=== PATIENT | male | born 1990 | race African-American/Black ===

== ENCOUNTER 2024-01-13 12:51 | Emergency (ER) | payer OTHER, SELFPAY ==
[2024-01-13 13:05] VITALS: BP 121/82; PULSE 60; RESP 14; TEMP 36.6; O2SAT 99; BMI 23.7
--- NOTE | 2024-01-13 13:29 | PC.NURSE ---
Pt in [facility], spoke with commanding officer stated he was on anti depressant and has been for a while, when this nurse asked pt if he was on anti-depressant pt stated no and he hadn't been for a while.
[2024-01-13 13:38] LABS: MANUAL DIFF FLAG NO
[2024-01-13 13:40] LABS: Basophils Absolute Auto 0.1 X10*3/uL (0.0-0.2); Basophils Percent Auto 1.4 % (0-2); Eosinophils Absolute Auto 0.6 X10*3/uL (0.0-0.4); Eosinophils Percent Auto 12.2 % (0-4); Hematocrit 41.5 % (42.0-52.0); Hemoglobin 14.4 g/dl (14.0-18.0); Imm Gran Abs Auto 0.01 X10*3/uL (0.00-0.03); Imm Gran Pct Auto 0.2 % (0.0-0.4); Lymphocytes Absolute Auto 1.9 X10*3/uL (1.2-4.9); Lymphocytes Percent Auto 38.2 % (20-40); Mean Corpuscular HGB Conc 34.7 g/dl (31.0-36.0); Mean Corpuscular Hemoglobin 30.4 pg (27.0-33.0); Mean Corpuscular Volume 87.7 fL (80.0-98.0); Mean Platelet Volume 10.2 fL (9.4-12.4); Monocytes Absolute Auto 0.6 X10*3/uL (0.1-1.2); Monocytes Percent Auto 11.2 % (2-11); Neutrophils Absolute Auto 1.9 x10*3/uL (2.0-8.3); Neutrophils Percent Auto 36.8 % (45-73); Platelet Count 166 X10*3/uL (160-400); Red Blood Count 4.73 X10*6/uL (4.60-5.80); Red Cell Distribution Width 12.8 % (11.0-16.0); White Blood Count 5.1 X10*3/uL (4.8-10.8)
[2024-01-13 13:41] LABS: Appearance Urine Clear; Color Urine Yellow; Glucose Urine UA Negative (Negative); Leukocyte Esterase Urine Negative (Negative); Nitrite Urine Negative (Negative); PH 6.5 (5.0-9.0); Specific Gravity - Urine 1.025 (1.005-1.025); Urine Blood Negative (Negative); Urine Ketones Negative (Negative); Urine Protein Trace mg/dL (Neg-Trace)
[2024-01-13 14:08] LABS: Amphetamine Screen Urine Not Detected (Not Detect); Barbiturates, Urine Not Detected (Not Detect); Benzodiazepines Screen Urine Not Detected (Not Detect); Buprenorphine Scr Not Detected (Not Detect); Cannabinoid Screen Urine Not Detected (Not Detect); Cocaine Screen Urine Not Detected (Not Detect); Fentanyl, urine Not Detected (Not Detect); Methadone Screen, Urine Not Detected (Not Detect); Opiate Screen Urine Not Detected (Not Detect); Oxycodone Screen Urine Not Detected (Not Detect); Phencyclidine Screen Urine Not Detected (Not Detect)
[2024-01-13 14:08] LABS: Alanine Aminotransferase 13 U/L (0-40); Albumin Level 4.5 g/dL (3.5-5.0); Alkaline Phosphatase 52 U/L (39-117); Anion Gap 14 (12-20); Aspartate Amino Transferase 19 U/L (5-37); Bilirubin Direct 0.5 mg/dL (0.0-0.5); Bilirubin Total 1.2 mg/dL (0.0-1.0); Blood Urea Nitrogen 10 mg/dL (9-16); Calcium 9.5 mg/dL (8.4-10.2); Carbon Dioxide 27 mmol/L (22-29); Chloride 107 mmol/L (96-108); Creatinine Clr Calc Pharmacy 95.4; Estimated Glomerular Filt Rate > 60; Ethanol < 10 mg/dL; Glucose Random 90 mg/dL (60-115); Magnesium 1.9 mg/dL (1.6-2.6); Potassium 4.2 mmol/L (3.3-5.1); Sodium 144 mmol/L (135-145); Total Protein 7.6 g/dL (6.5-8.0)
--- NOTE | 2024-01-13 15:15 | ED_ITS ---
HPI - General Adult General Chief complaint: Psychiatric Symptoms Stated complaint: crisis Time Seen by Provider: 01/13/24 15:15 History of Present Illness HPI narrative: The patient is a 33-year-old male who was in the [employer]. He works as a marine volunteer recruiter. He has a history of depression. He says that he went off antidepressant medications about 3 or 4 months ago because he felt they were really doing much for him. He comes to the emergency room because he has been feeling more depressed over the last couple of weeks. He says that there has been a lot of stress on the job. A volunteer recruiter has a lot of pressure to meet quota requirements and this can be stressful. In particular he feels that he has been receiving pressure from colleagues regarding quotas. Additionally he has family in [place]. The developments in [place] recently and the implication for his family members in that country has also been a source of stress. Apparently he spoke to a superior officer today about whether he might have any likelihood of doing any self-harm and he suggested that he might have some thoughts of that kind. His superior officer therefore brought him to the hospital. The patient has had no fever sweats or chills. He reports that he had bone graft oral surgery on his left jaw 3 or 4 weeks ago at a [facility] in [place] [employer] [place]. He has some minor ongoing discomfort in the jaw but no definite sense of any complications from the procedure. Related Data Allergies Allergy/AdvReac Type Severity Reaction Status Date / Time Penicillins Allergy Unknown Verified 01/13/24 13:09 Review of Systems 2 Review of Systems: Yes all other systems are reviewed and are negative PMFSH Social History Social History Advance Directives: No Advance Directives Information Provided: No Physical Exam ED Vital Signs: Vital Signs - 24 hr 01/13/24 13:05 01/13/24 15:28 01/13/24 16:16 Temperature 97.9 F 98.2 F 98.0 F Pulse Rate 60 64 58 Respiratory Rate 14 16 16 Blood Pressure 121/82 120/90 H 129/83 Pulse Oximetry 99 98 98 Oxygen Delivery Method Room Air Room Air Room Air 01/13/24 17:26 Temperature 98.0 F Pulse Rate 58 Respiratory Rate 16 Blood Pressure 129/83 Pulse Oximetry 98 Oxygen Delivery Method Room Air BMI result Body Mass Index 23.7 Const Other: The patient is a healthy looking 33-year-old who was awake and alert. He has a very subdued demeanor but does not seem in distress. He makes good eye contact. He is very pleasant. HENRI Other: Face is symmetrical. No oral swelling. Intraoral exam is normal. No trismus. Eyes Other: Pupils are round equal, conjunctivae clear Neck Other: No adenopathy Resp Effort & Inspection: normal respiratory effort Auscultation: clear to auscultation bilaterally Cardio Rate: regular rate Rhythm: regular rhythm Heart sounds: S1 normal heart sound present and S2 normal heart sound present GI Other: Abdomen is soft and nontender Skin Other: Skin is dry and unremarkable Neuro Other: The patient is awake, alert, pleasant, cooperative. Cranial nerves are intact. He moves his extremities normally. Gait is normal, neurologically intact. Extrem Other: No swelling or asymmetry of the extremities Medical Decision Making Medical Decision Making MDM Narrative: The patient is a 33-year-old [employer] volunteer recruiter who was brought to the hospital by his superiors out of concern for possible depression. The patient denies any definite suicidal thoughts. He is medically clear. He was seen by the care team who felt that he was appropriate for outpatient management. Safety planning was done. The patient lives in [place] and usually works in [place] but was at the [employer] [facility] today conference. He will be discharged with his personnel. He will follow up as an outpatient. He denies any suicidal thoughts at the time of discharge. Lab Data 01/13/24 13:35 01/13/24 13:35 Labs: Lab Results 01/13/24 01/13/24 Range/Units 13:27 13:35 WBC 5.1 (4.8-10.8) X10*3/uL RBC 4.73 (4.60-5.80) X10*6/uL Hgb 14.4 (14.0-18.0) g/dl Hct 41.5 L (42.0-52.0) % MCV 87.7 (80.0-98.0) fL MCH 30.4 (27.0-33.0) pg MCHC 34.7 (31.0-36.0) g/dl RDW 12.8 (11.0-16.0) % Plt Count 166 (160-400) X10*3/uL MPV 10.2 (9.4-12.4) fL Immature Gran % (Auto) 0.2 (0.0-0.4) % Neut % (Auto) 36.8 L (45-73) % Lymph % (Auto) 38.2 (20-40) % Atkinson % (Auto) 11.2 H (2-11) % Eos % (Auto) 12.2 H (0-4) % Baso % (Auto) 1.4 (0-2) % Lymph # (Auto) 1.9 (1.2-4.9) X10*3/uL Atkinson # (Auto) 0.6 (0.1-1.2) X10*3/uL Eos # (Auto) 0.6 H (0.0-0.4) X10*3/uL Baso # (Auto) 0.1 (0.0-0.2) X10*3/uL Abs Immat Gran (auto) 0.01 (0.00-0.03) X10*3/uL Absolute Neuts (auto) 1.9 L (2.0-8.3) x10*3/uL Absolute Nucleated RBC 0.000 (0.0-0.012) X10*3/uL Nucleated RBC % (auto) 0.0 (0.0-0.2) /100WBC Sodium 144 (135-145) mmol/L Potassium 4.2 (3.3-5.1) mmol/L Chloride 107 (96-108) mmol/L Carbon Dioxide 27 (22-29) mmol/L Anion Gap 14 (12-20) BUN 10 (9-16) mg/dL Creatinine 1.22 (0.5-1.4) mg/dL Estim Creat Clear Calc 95.4 Estimated GFR > 60 Random Glucose 90 (60-115) mg/dL Calcium 9.5 (8.4-10.2) mg/dL Magnesium 1.9 (1.6-2.6) mg/dL Total Bilirubin 1.2 H (0.0-1.0) mg/dL Direct Bilirubin 0.5 (0.0-0.5) mg/dL AST 19 (5-37) U/L ALT 13 (0-40) U/L Alkaline Phosphatase 52 (39-117) U/L Total Protein 7.6 (6.5-8.0) g/dL Albumin 4.5 (3.5-5.0) g/dL Urine Color Yellow Urine Appearance Clear Urine pH 6.5 (5.0-9.0) Ur Specific [place] 1.025 (1.005-1.025) Urine Protein Trace (Neg-Trace) mg/dL Urine Glucose (UA) Negative (Negative) mg/dL Urine Ketones Negative (Negative) mg/dL Urine Blood Negative (Negative) Urine Nitrite Negative (Negative) Ur Leukocyte Esterase Negative (Negative) Urine Opiates Screen Not Detected (Not Detect) Ur Buprenorphine Scrn Not Detected (Not Detect) ng/mL Ur Oxycodone Screen Not Detected (Not Detect) ng/mL Urine Methadone Screen Not Detected (Not Detect) ng/mL Urine Fentanyl Screen Not Detected (Not Detect) Ur Barbiturates Screen Not Detected (Not Detect) Ur Phencyclidine Scrn Not Detected (Not Detect) Ur Amphetamines Screen Not Detected (Not Detect) U Benzodiazepines Scrn Not Detected (Not Detect) Urine Cocaine Screen Not Detected (Not Detect) U Marijuana (THC) Screen Not Detected (Not Detect) Ethyl Alcohol < 10 mg/dL Discharge Plan Discharge Clinical Impression: Encounter for behavioral health screening Patient Disposition: Home, Self-Care Additional Instructions: Please plan on making follow up arrangements through your regular providers to discuss how you have been feeling. If at any point you are feeling particularly bad and wished to speak to somebody confidentially you can contact the crisis hotline . I believe this is specific. If you are feeling significantly bad please go to the nearest emergency room. Interventions: Davis-Suicide Risk Severity Scale Last Done: 01/13/24 13:10 ED Discharge Assessment Last Done: 01/13/24 17:26 Print Language: Swedish
[2024-01-13 15:28] VITALS: BP 120/90; PULSE 64; RESP 16; TEMP 36.8; O2SAT 98
[2024-01-13 16:16] VITALS: BP 129/83; PULSE 58; RESP 16; TEMP 36.7; O2SAT 98
[2024-01-13 17:26] VITALS: BP 129/83; PULSE 58; RESP 16; TEMP 36.7; O2SAT 98
--- NOTE | 2024-01-13 17:29 | PC.NURSE ---
patient belongings retrieved from locker. pt escorted out of pod w/ security for discharge.
== END 2024-01-13 17:33 | disposition home or self-care (01) ==
PROVIDERS: Physician Assistant; Emergency Provider Emergency Medicine
DX: F32.A Depression, unspecified (principal)
CPT/HCPCS: 36415; 80048; 80076; 80307; 81003; 83735; 85025; 99284; S9485